=== PATIENT | male | born 1990 | race Caucasian/White ===

== ENCOUNTER 2021-08-28 13:01 | Emergency (ER) | payer MEDICAID | END 2021-08-28 14:38 | disposition left against medical advice (07) | LOC: JP.ED 13:01 | DX: Z53.21 Procedure and treatment not carried out due to patient leaving prior to being seen by health care provider (principal) ==

== ENCOUNTER 2021-08-28 16:36 | Emergency (ER) | payer MEDICAID | END 2021-08-28 17:22 | disposition left against medical advice (07) | LOC: JP.ED 16:36 | DX: Z53.21 Procedure and treatment not carried out due to patient leaving prior to being seen by health care provider (principal) ==

== ENCOUNTER 2021-08-28 22:00 | Emergency (ER) | payer MEDICAID ==
--- NOTE | 2021-08-28 23:30 | EDM.PDOC ---
ED HPI GENERAL MEDICAL PROBLEM - General Chief Complaint: Drug or Alcohol Abuse Stated Complaint: EVAL Time Seen by Provider: 08/28/21 23:15 Source of Information: Reports: Patient History Limitations: Reports: No Limitations - History of Present Illness INITIAL COMMENTS - FREE TEXT/NARRATIVE: 31-year-old male who just finished 3 days of detox at [facility], came in earlier today with chest pain that he was complaining about while at detox. However after being in the emergency room for 35 minutes, he left. He returned later in the day but left again, now he is back for the third time. He has no chest pain now. He wants to go back out to detox. He described the pain as a tightness, which she has had in the past due to anxiety but this time there was some stinging sensation in his arm so it was different. He thought it lasted about 2 hours. Onset: Sudden Duration: Hour(s): (Lasted about 2 hours) Location: Reports: Chest, Upper Extremity, Left Quality: Reports: Burning, Pressure Associated Symptoms: Reports: No Other Symptoms. Denies: Nausea/Vomiting, Shortness of Breath - Related Data Allergies Allergy/AdvReac Type Severity Reaction Status Date / Time Penicillins Allergy Swelling Verified 08/28/21 23:05 Home Meds: Home Meds Multivitamin [Multi-Vitamin Daily] 1 tab PO DAILY 08/28/21 [History] Past Medical History HEENT History: Reports: Impaired Vision Gastrointestinal History: Reports: Other (See Below) Other Gastrointestinal History: "small intestine" quit working Neurological History: Reports: Concussion Psychiatric History: Reports: Addiction Dermatologic History: Reports: Other (See Below) Other Dermatologic History: areas on abdomen - Infectious Disease History Infectious Disease History: Reports: Chicken Pox - Past Surgical History Musculoskeletal Surgical History: Reports: Other (See Below) Other Musculoskeletal Surgeries/Procedures:: right shoulder clavicle reconstruction Social & Family History - Tobacco Use Tobacco Use Status *Q: Current Every Day Tobacco User Years of Tobacco use: 10 Packs/Tins Daily: 0.5 - Caffeine Use Caffeine Use: Reports: Coffee - Recreational Drug Use Recreational Drug Use: Yes Drug Use in Last 12 Months: Yes Recreational Drug Type: Reports: Methamphetamine Recreational Drug Use Frequency: Daily Recreational Drug Last Use: t-1 ED ROS GENERAL - Review of Systems Review Of Systems: See Below Constitutional: Reports: Malaise. Denies: Fever, Chills HEENT: Reports: No Symptoms Respiratory: Denies: Shortness of Breath, Cough Cardiovascular: Reports: Chest Pain GI/Abdominal: Denies: Abdominal Pain, Nausea, Vomiting Musculoskeletal: Reports: Other (Left arm discomfort, stinging sensation) Skin: Denies: Pallor, Diaphoresis Neurological: Denies: Headache ED EXAM, GENERAL - Physical Exam Exam: See Below Exam Limited By: No Limitations General Appearance: Alert, No Apparent Distress Eye Exam: Bilateral Eye: Conjunctival Injection (Bilateral), EOMI, PERRL Head: Atraumatic Neck: Supple, Non-Tender Respiratory/Chest: Lungs Clear Cardiovascular: Regular Rate, Rhythm, Other (I cannot reproduce chest pain with palpation the chest wall) GI/Abdominal: Soft, Non-Tender Extremities: No: Pedal Edema Neurological: Alert, Oriented Psychiatric: Flat Affect Skin Exam: Warm, Dry Course - Vital Signs Last Recorded V/S: Last Vital Signs Temp 97.2 F 08/28/21 23:07 Pulse 84 08/28/21 23:07 Resp 14 08/28/21 23:07 BP 136/89 08/28/21 23:07 Pulse Ox 98 08/28/21 23:07 - Orders/Labs/Meds Labs: Laboratory Tests 08/28/21 08/28/21 08/28/21 Range/Units 23:15 23:15 23:15 WBC 9.5 (4.5-11.0) K/uL RBC 4.42 (4.30-5.90) M/uL Hgb 12.6 (12.0-15.0) g/dL Hct 37.8 L (40.0-54.0) % MCV 86 (80-98) fL MCH 29 (27-31) pg MCHC 33 (32-36) % Plt Count 335 (150-400) K/uL Neut % (Auto) 59.6 (36-66) % Lymph % (Auto) 25.2 (24-44) % [place] % (Auto) 9.7 H (2-6) % Eos % (Auto) 5.2 H (2-4) % Baso % (Auto) 0.3 (0-1) % Sodium 142 (140-148) mmol/L Potassium 3.8 (3.6-5.2) mmol/L Chloride 104 (100-108) mmol/L Carbon Dioxide 31 (21-32) mmol/L Anion Gap 7.5 (5.0-14.0) mmol/L BUN 15 (7-18) mg/dL Creatinine 0.8 (0.8-1.3) mg/dL Est Cr Clr Drug Dosing 148.43 mL/min Estimated GFR (MDRD) > 60 (>60) Glucose 95 (74-106) mg/dL Calcium 8.5 (8.5-10.1) mg/dL Troponin I < 0.017 (0.000-0.056) ng/mL Urine Opiates Screen (NEGATIVE) Ur Oxycodone Screen (NEGATIVE) Urine Methadone Screen (NEGATIVE) Ur Propoxyphene Screen (NEGATIVE) Ur Barbiturates Screen (NEGATIVE) Ur Tricyclics Screen (NEGATIVE) Ur Phencyclidine Scrn (NEGATIVE) Ur Amphetamine Screen (NEGATIVE) U Methamphetamines Scrn (NEGATIVE) Urine MDMA Screen (NEGATIVE) U Benzodiazepines Scrn (NEGATIVE) U Cocaine Metab Screen (NEGATIVE) U Marijuana (THC) Screen (NEGATIVE) Ethyl Alcohol < 3 mg/dL 08/28/21 Range/Units 23:25 WBC (4.5-11.0) K/uL RBC (4.30-5.90) M/uL Hgb (12.0-15.0) g/dL Hct (40.0-54.0) % MCV (80-98) fL MCH (27-31) pg MCHC (32-36) % Plt Count (150-400) K/uL Neut % (Auto) (36-66) % Lymph % (Auto) (24-44) % [place] % (Auto) (2-6) % Eos % (Auto) (2-4) % Baso % (Auto) (0-1) % Sodium (140-148) mmol/L Potassium (3.6-5.2) mmol/L Chloride (100-108) mmol/L Carbon Dioxide (21-32) mmol/L Anion Gap (5.0-14.0) mmol/L BUN (7-18) mg/dL Creatinine (0.8-1.3) mg/dL Est Cr Clr Drug Dosing mL/min Estimated GFR (MDRD) (>60) Glucose (74-106) mg/dL Calcium (8.5-10.1) mg/dL Troponin I (0.000-0.056) ng/mL Urine Opiates Screen Negative (NEGATIVE) Ur Oxycodone Screen Negative (NEGATIVE) Urine Methadone Screen Negative (NEGATIVE) Ur Propoxyphene Screen Negative (NEGATIVE) Ur Barbiturates Screen Negative (NEGATIVE) Ur Tricyclics Screen Negative (NEGATIVE) Ur Phencyclidine Scrn Negative (NEGATIVE) Ur Amphetamine Screen Presumptive positive H (NEGATIVE) U Methamphetamines Scrn Presumptive positive H (NEGATIVE) Urine MDMA Screen Negative (NEGATIVE) U Benzodiazepines Scrn Negative (NEGATIVE) U Cocaine Metab Screen Negative (NEGATIVE) U Marijuana (THC) Screen Negative (NEGATIVE) Ethyl Alcohol mg/dL - Re-Assessments/Exams Free Text/Narrative Re-Assessment/Exam: 08/28/21 23:29 CBC, BMP, troponin, EtOH and urine drug screen were obtained. Patient will be sent back to [facility] if he is excepted and if he qualifies. 08/29/21 00:15 Urine drug screen is positive for methamphetamine and amphetamine as it was 5 days ago when he went into detox. EtOH is 0, troponin is 0, chemistry profile is completely normal. Patient was cleared physically for readmission to detox. Departure - Departure Time of Disposition: 00:20 Disposition: Home, Self-Care 01 Clinical Impression: Methamphetamine abuse, Atypical chest pain - Discharge Information Instructions: Nonspecific Chest Pain, Adult Referrals: PCP,None [Primary Care Provider] - Forms: ED Department Discharge Care Plan Goals: Return to [facility] and follow the recommendations for detox and treatment to avoid abusing drugs and alcohol in the future. Sepsis Event Note (ED) - Focused Exam Vital Signs: Vital Signs Temp Pulse Resp BP Pulse Ox 08/28/21 23:07 97.2 F 84 14 136/89 98
== END 2021-08-29 01:00 | disposition home or self-care (01) ==
LOC: JP.ED 22:00
DX: R07.89 Other chest pain (principal); F15.20 Other stimulant dependence, uncomplicated; Z88.0 Allergy status to penicillin; Z72.0 Tobacco use
CPT/HCPCS: 36415; 80048; 80305-QW; 80307; 84484; 85025; 99284

== ENCOUNTER 2021-09-09 17:59 | Emergency (ER) | payer MEDICAID ==
[2021-09-09] MEDS ORDERED: Sodium Chloride 0.9% 10 ML Syringe FLUSH PRN (18:06)
[2021-09-09] MEDS ORDERED: Sodium Chloride 0.9% 10 ML Syringe FLUSH ONE (18:56)
[2021-09-09] MEDS ORDERED: Iopamidol 612 MG/ML 100 ML Bottle IV PRN (18:56)
[2021-09-09] MEDS ORDERED: Sodium Chloride 0.9% 80 ML IV SCH (19:00)
--- NOTE | 2021-09-09 20:03 | CRLCT ---
For Patients: As a result of the Century Cures Act, medical imaging exams and procedure reports are released immediately into your electronic medical record. You may view this report before your referring provider. If you have questions, please contact your health care provider. Indication: Left lower quadrant pain. Technique: Multiple contiguous axial images were obtained from the lung bases through the symphysis pubis after the intravenous administration 100 cc Isovue-300. Please note that all CT scans at this facility use dose modulation, iterative reconstruction, and/or weight-based dosing when appropriate to reduce radiation dose to as low as reasonably achievable. Comparison: None Findings: The lung bases are clear. The heart is normal in size. No pericardial effusions identified. The liver, spleen, pancreas, adrenals, gallbladder, and kidneys are normal. No intrahepatic biliary ductal dilatation is identified. No hydronephrosis is identified. In the pelvis, urinary bladder is normal. The prostate gland is normal. No free fluid or free air is identified within the abdomen or pelvis. The small and large bowel are normal in caliber. Moderate amount of stool is identified within the colon. Minimal colonic diverticulosis is identified. There is no evidence of diverticulitis. The appendix is normal in size. The aorta is normal caliber. No lytic or blastic lesions of the spine identified. Impression: Normal CT scan the abdomen and pelvis with contrast Please note that all CT scans at this facility use dose modulation, iterative reconstruction, and/or weight-based dosing when appropriate to reduce radiation dose to as low as reasonably achievable. Dictated by Elayne Hernandez MD @ 09/09/2021 8:01:59 PM (Electronically Signed)
[2021-09-09] MEDS ORDERED: Pantoprazole 40 MG Tab.CR PO STA (20:14)
--- NOTE | 2021-09-09 20:16 | EDM.PDOC ---
ED HPI GENERAL MEDICAL PROBLEM - General Chief Complaint: Abdominal Pain Stated Complaint: MEDICAL/ABDOM. PAIN Time Seen by Provider: 09/09/21 18:05 Source of Information: Reports: Patient History Limitations: Reports: No Limitations - History of Present Illness INITIAL COMMENTS - FREE TEXT/NARRATIVE: Tyrone is a 31-year-old male presenting by [facility] from [facility] for evalu ation of acute onset of left lower quadrant pain for the last 32 hours accompanied by increased eructation and acid reflux. The patient has nausea but states he cannot vomit due to his alcoholism. He has not had any fever or chills but does complain of increasing left lower quadrant pain. 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 He is currently in treatment for alcohol and methamphetamine abuse but has not consumed any since admission to [facility]. Left Abdomen Pain Score (Numeric/FACES): 7 - Related Data Allergies Allergy/AdvReac Type Severity Reaction Status Date / Time Penicillins Allergy Swelling Verified 09/09/21 18:04 Home Meds: Home Meds Multivitamin [Multi-Vitamin Daily] 1 tab PO DAILY 08/28/21 [History] Pantoprazole 20 mg PO ACBREAKFAST #30 tab.dr 09/09/21 [Rx] busPIRone [Buspar] 10 mg PO BID 09/09/21 [History] Past Medical History HEENT History: Reports: Impaired Vision Gastrointestinal History: Reports: Other (See Below) Other Gastrointestinal History: "small intestine" quit working Neurological History: Reports: Concussion Psychiatric History: Reports: Addiction Dermatologic History: Reports: Other (See Below) Other Dermatologic History: areas on abdomen - Infectious Disease History Infectious Disease History: Reports: Chicken Pox - Past Surgical History Musculoskeletal Surgical History: Reports: Other (See Below) Other Musculoskeletal Surgeries/Procedures:: right shoulder clavicle reconstruction Social & Family History - Tobacco Use Tobacco Use Status *Q: Heavy Tobacco User Years of Tobacco use: 10 Packs/Tins Daily: 0.5 - Caffeine Use Caffeine Use: Reports: Coffee - Recreational Drug Use Recreational Drug Use: Yes Recreational Drug Type: Reports: Methamphetamine ED ROS GENERAL - Review of Systems Review Of Systems: See Below Constitutional: Reports: No Symptoms HEENT: Reports: No Symptoms Respiratory: Reports: No Symptoms Cardiovascular: Reports: No Symptoms Endocrine: Reports: No Symptoms GI/Abdominal: Reports: Abdominal Pain (Left lower quadrant abdominal pain), Diarrhea (Reports having loose stools), Nausea, Other (Increased acid reflux). Denies: Anorexia, Decreased Appetite, Hematemesis, Hematochezia, Melena, Vomiting : Reports: No Symptoms Musculoskeletal: Reports: No Symptoms Skin: Reports: No Symptoms Neurological: Reports: No Symptoms Psychiatric: Reports: No Symptoms Hematologic/Lymphatic: Reports: No Symptoms Immunologic: Reports: No Symptoms ED EXAM, GI/ABD - Physical Exam Exam: See Below Exam Limited By: No Limitations General Appearance: Alert, Anxious, Mild Distress Eyes: Bilateral: EOMI Throat/Mouth: Normal Inspection, Normal Oropharynx, Normal Voice, No Airway Compromise Head: Atraumatic, Normocephalic Neck: Normal Inspection, Supple Respiratory/Chest: No Respiratory Distress, Lungs Clear, Normal Breath Sounds Cardiovascular: Normal Peripheral Pulses, Regular Rate, Rhythm, No Murmur GI/Abdominal Exam: Soft, No Distention, Tender (Mild tenderness in the left lower quadrant), Abnormal Bowel Sounds (Minutes bowel sounds). No: Guarding, Rebound Back Exam: Normal Inspection Extremities: Normal Inspection, Normal Range of Motion Neurological: Alert, Oriented, Normal Cognition, No Motor/Sensory Deficits Psychiatric: Normal Affect, Normal Mood Skin Exam: Warm, Dry, Intact, Normal Color Lymphatic: No Adenopathy Course - Vital Signs Last Recorded V/S: Last Vital Signs Temp 36.6 C 09/09/21 18:08 Pulse 95 09/09/21 18:08 Resp 16 09/09/21 18:08 BP 135/79 09/09/21 18:08 Pulse Ox 97 09/09/21 18:08 - Orders/Labs/Meds Orders: Active Orders 24 hr Category Date Time Status Iopamidol [Isovue-300 (61%)] Med 09/09/21 18:56 Active 100 ml IV . DIRECTED PRN Sodium Chloride 0.9% [Normal Saline] 80 ml Med 09/09/21 19:00 Active IV ASDIRECTED Sodium Chloride 0.9% [Saline Flush] Med 09/09/21 18:06 Active 10 ml FLUSH ASDIRECTED PRN Saline Lock Insert [OM.PC] Routine Oth 09/09/21 18:06 Ordered Medication Orders Sodium Chloride (Normal Saline) 80 mls @ 3.5 mls/sec IV ASDIRECTED KAYCEE Last Admin: 09/09/21 19:05 Dose: 3.5 mls/sec Documented by: SUGAR Iopamidol (Iopamidol 612 Mg/Ml 100 Ml Bottle) 100 ml IV . DIRECTED PRN PRN Reason: RADIOLOGY EXAM Stop: 09/10/21 18:57 Last Admin: 09/09/21 19:05 Dose: 100 ml Documented by: SUGAR Sodium Chloride (Sodium Chloride 0.9% 10 Ml Syringe) 10 ml FLUSH ASDIRECTED PRN PRN Reason: Keep Vein Open Last Admin: 09/09/21 18:15 Dose: 10 ml Documented by: LAM Labs: Laboratory Tests 09/09/21 09/09/21 09/09/21 Range/Units 18:16 18:17 18:17 WBC 9.6 (4.5-11.0) K/uL RBC 4.73 (4.30-5.90) M/uL Hgb 13.7 (12.0-15.0) g/dL Hct 41.2 (40.0-54.0) % MCV 87 (80-98) fL MCH 29 (27-31) pg MCHC 33 (32-36) % Plt Count 361 (150-400) K/uL Neut % (Auto) 54.7 (36-66) % Lymph % (Auto) 30.0 (24-44) % [place] % (Auto) 9.1 H (2-6) % Eos % (Auto) 5.5 H (2-4) % Baso % (Auto) 0.7 (0-1) % Sodium 139 L (140-148) mmol/L Potassium 5.1 (3.6-5.2) mmol/L Chloride 104 (100-108) mmol/L Carbon Dioxide 27 (21-32) mmol/L Anion Gap 13.1 (5.0-14.0) mmol/L BUN 27 H D (7-18) mg/dL Creatinine 1.0 (0.8-1.3) mg/dL Est Cr Clr Drug Dosing 118.74 mL/min Estimated GFR (MDRD) > 60 (>60) Glucose 83 (74-106) mg/dL Lactic Acid (0.4-2.0) mmol/L Calcium 9.1 (8.5-10.1) mg/dL Total Bilirubin 0.2 (0.2-1.0) mg/dL AST 74 H (15-37) U/L ALT 291 H (12-78) U/L Alkaline Phosphatase 107 (46-116) U/L Total Protein 6.9 (6.4-8.2) g/dL Albumin 3.9 (3.4-5.0) g/dL Globulin 3.0 (2.3-3.5) g/dL Albumin/Globulin Ratio 1.3 (1.2-2.2) Lipase 102 (73-393) U/L SARS CoV-2 RNA Rapid PHIL Negative 09/09/21 Range/Units 18:17 WBC (4.5-11.0) K/uL RBC (4.30-5.90) M/uL Hgb (12.0-15.0) g/dL Hct (40.0-54.0) % MCV (80-98) fL MCH (27-31) pg MCHC (32-36) % Plt Count (150-400) K/uL Neut % (Auto) (36-66) % Lymph % (Auto) (24-44) % [place] % (Auto) (2-6) % Eos % (Auto) (2-4) % Baso % (Auto) (0-1) % Sodium (140-148) mmol/L Potassium (3.6-5.2) mmol/L Chloride (100-108) mmol/L Carbon Dioxide (21-32) mmol/L Anion Gap (5.0-14.0) mmol/L BUN (7-18) mg/dL Creatinine (0.8-1.3) mg/dL Est Cr Clr Drug Dosing mL/min Estimated GFR (MDRD) (>60) Glucose (74-106) mg/dL Lactic Acid 0.9 (0.4-2.0) mmol/L Calcium (8.5-10.1) mg/dL Total Bilirubin (0.2-1.0) mg/dL AST (15-37) U/L ALT (12-78) U/L Alkaline Phosphatase (46-116) U/L Total Protein (6.4-8.2) g/dL Albumin (3.4-5.0) g/dL Globulin (2.3-3.5) g/dL Albumin/Globulin Ratio (1.2-2.2) Lipase (73-393) U/L SARS CoV-2 RNA Rapid PHIL Meds: Medications Generic Name Dose Route Start Last Admin Trade Name Freq PRN Reason Stop Dose Admin Sodium Chloride 80 mls @ 3.5 mls/sec 09/09/21 19:00 09/09/21 19:05 Normal Saline IV 3.5 mls/sec ASDIRECTED KAYCEE Administration Iopamidol 100 ml 09/09/21 18:56 09/09/21 19:05 Iopamidol 612 Mg/Ml 100 Ml Bottle IV 09/10/21 18:57 100 ml . DIRECTED PRN Administration RADIOLOGY EXAM Sodium Chloride 10 ml 09/09/21 18:06 09/09/21 18:15 Sodium Chloride 0.9% 10 Ml Syringe FLUSH 10 ml ASDIRECTED PRN Administration Keep Vein Open Discontinued Medications Generic Name Dose Route Start Last Admin Trade Name Freq PRN Reason Stop Dose Admin Sodium Chloride 10 ml 09/09/21 18:56 09/09/21 19:05 Sodium Chloride 0.9% 10 Ml Syringe FLUSH 09/09/21 18:57 10 ml ONETIME ONE Administration - Radiology Interpretation Free Text/Narrative:: I reviewed the images of the CT of the abdomen and pelvis with contrast as well as the report. The report is as follows: Findings: The lung bases are clear. The heart is normal in size. No pericardial effusions identified. The liver, spleen, pancreas, adrenals, gallbladder, and kidneys are normal. No intrahepatic biliary ductal dilatation is identified. No hydronephrosis is identified. In the pelvis, urinary bladder is normal. The prostate gland is normal. No free fluid or free air is identified within the abdomen or pelvis. The small and large bowel are normal in caliber. Moderate amount of stool is identified within the colon. Minimal colonic diverticulosis is identified. There is no evidence of diverticulitis. The appendix is normal in size. The aorta is normal caliber. No lytic or blastic lesions of the spine identified. Impression: Normal CT scan the abdomen and pelvis with contrast Please note that all CT scans at this facility use dose modulation, iterative reconstruction, and/or weight-based dosing when appropriate to reduce radiation dose to as low as reasonably achievable. Dictated by Elayne Hernandez MD @ 09/09/2021 8:01:59 PM - Re-Assessments/Exams Free Text/Narrative Re-Assessment/Exam: 09/09/21 20:12 the work-up today shows a copious amount of colonic stool without evidence for obstruction. There is no evidence for small bowel obstruction. There is nothing really to account for the patient's left lower quadrant pain other than the constipation. Labs were obtained and show a normal CBC, comprehensive metabolic profile with the exception of elevation of the alkaline phosphatase at 107, AST is 74 and ALT of 291. He has Covid negative. I do think that his increased eructation and acid reflux can be addressed with starting him on pantoprazole so we will give him a dose here and a prescription for [facility]. At this time I believe he suitable for discharge back to [facility]. Departure - Departure Time of Disposition: 20:13 Disposition: Home, Self-Care 01 Clinical Impression: Slow transit constipation GERD (gastroesophageal reflux disease) Qualifiers: Esophagitis presence: with esophagitis Esophagitis bleeding: without hemorrhage Qualified Code(s): K21.00 - Gastro-esophageal reflux disease with esophagitis, without bleeding - Discharge Information Instructions: Gastroesophageal Reflux Disease, Adult, [id number], Constipation, Adult, [id number] Referrals: PCP,None [Primary Care Provider] - Care Plan Goals: Your work-up today shows that you have slow transit constipation with a considerable amount of stool throughout your colon. I would recommend a laxative of choice for this and increase your fluid intake with water. The increased eructation and acid reflux we will address using pantoprazole (Protonix) taken daily for the next 30 days. There was no evidence of Covid or any laboratory abnormalities other than your liver enzymes being elevated. You're Covid negative. Began your CT of the abdomen and pelvis did not demonstrate any evidence for obstruction. You do have diverticulosis in the sigmoid colon without diverticulitis. Sepsis Event Note (ED) - Evaluation Sepsis Screening Result: No Definite Risk - Focused Exam Vital Signs: Vital Signs Temp Pulse Resp BP Pulse Ox 09/09/21 18:08 36.6 C 95 16 135/79 97 09/09/21 18:04 36.6 C 95 16 135/79 97 - Problem List & Annotations (1) GERD (gastroesophageal reflux disease) SNOMED Code(s): 568281124 Code(s): K21.9 - GASTRO-ESOPHAGEAL REFLUX DISEASE WITHOUT ESOPHAGITIS Status: Chronic Priority: Medium Current Visit: Yes Qualifiers: Esophagitis presence: with esophagitis Esophagitis bleeding: without hemorrhage Qualified Code(s): K21.00 - Gastro-esophageal reflux disease with esophagitis, without bleeding (2) Slow transit constipation SNOMED Code(s): 79672844 Code(s): K59.01 - SLOW TRANSIT CONSTIPATION Status: Acute Priority: Medium Current Visit: Yes - Problem List Review Problem List Initiated/Reviewed/Updated: Yes - My Orders Last 24 Hours: My Active Orders 09/09/21 18:06 Sodium Chloride 0.9% [Saline Flush] 10 ml FLUSH ASDIRECTED PRN Saline Lock Insert [OM.PC] Routine 09/09/21 18:56 Iopamidol [Isovue-300 (61%)] 100 ml IV . DIRECTED PRN 09/09/21 19:00 Sodium Chloride 0.9% [Normal Saline] 80 ml IV ASDIRECTED - Assessment/Plan Last 24 Hours: My Active Orders 09/09/21 18:06 Sodium Chloride 0.9% [Saline Flush] 10 ml FLUSH ASDIRECTED PRN Saline Lock Insert [OM.PC] Routine 09/09/21 18:56 Iopamidol [Isovue-300 (61%)] 100 ml IV . DIRECTED PRN 09/09/21 19:00 Sodium Chloride 0.9% [Normal Saline] 80 ml IV ASDIRECTED
== END 2021-09-09 21:08 | disposition home or self-care (01) ==
LOC: JP.ED 17:59
DX: K21.00 Gastro-esophageal reflux disease with esophagitis, without bleeding (principal); K59.01 Slow transit constipation; Z88.0 Allergy status to penicillin; Z79.899 Other long term (current) drug therapy; Z72.0 Tobacco use; Z20.822 Contact with and (suspected) exposure to COVID-19
CPT/HCPCS: 36415; 74177; 80053; 83605; 83690; 85025; 87635; 99284; A9270; Q9967; U0002